=== PATIENT | female | born 1980 | race Caucasian/White ===

== ENCOUNTER 2017-12-28 06:43 | Day surgery (SDC) | payer BC ==
--- NOTE | 2017-12-10 09:52 | HP ---
DATE OF ADMISSION: 12/28/2017 Ambulatory Surgery at [facility] DATE OF PROPOSED SURGERY: 12/28/2017. ADMISSION DIAGNOSES: A 12-week intrauterine , history of incompetent cervix, need for cervical cerclage. HISTORY OF PRESENT ILLNESS: The patient is a 37-year-old, 4, now para 1-0-2-1 white female, who is admitted for a placement of a modified Shirodkar cervical cerclage. She has had previous history of incompetent cervix and is early again. The performance of cervical cerclage, its risks, benefits, alternatives of care are discussed in detail with the patient. She appears to understand and wishes to proceed. Consent is signed. 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 AMADOU is 07/01/2018 as determined by an early ultrasound and this was supported by a second ultrasound done 12/06/2017. The patient's previous obstetric history includes the followin. Miscarriage 04/29/2008 at 9 weeks gestation. 2. Miscarriage 03/31/2009, first trimester. 3. Normal spontaneous vaginal delivery 01/11/2010 at 37 weeks gestational age after 12 hours of labor - 8 pounds and 9 ounces male - cerclage placed at 13 weeks with that - child's name is Zach. 4. The patient's last menstrual period was 09/17/2017, but cycles are very irregular. Menarche age 13. No control at the time of conception. Risk factors for the include the following; history of incompetent cervix, hypothyroidism, history of depression, low progesterone now on supplementation, history of miscarriage x2. PAST MEDICAL HISTORY: 1. Miscarriage x2. 2. Normal spontaneous vaginal delivery. 3. History of depression at age 25, treated with medication. 4. History of abnormal Pap smear treated with loop electrosurgical excision procedure x2. 5. Hypothyroidism. ALLERGIES: Hydrocodone, which causes abdominal pain, nausea, vomiting. CURRENT MEDICATIONS: Include: 1. Progesterone vaginal suppositories 100 mg per day b.i.d. 2. Levothyroxine 100 mcg daily. PAST SURGICAL HISTORY: 1. LEEP x2. 2. Laparoscopic cholecystectomy. 3. Umbilical hernia repair x2. FAMILY HISTORY: Mother is alive and well. Father is alive and well. Two sisters alive and well. One brother alive, but treated for hypertension. Maternal grandmother is alive but has history of skin cancer. Maternal grandfather is secondary to prostate cancer and an [place]. Paternal grandmother secondary to leukemia. Paternal grandfather is secondary to Alzheimer's. She reports no bleeding, clotting, anesthesia, or problems in the family. One maternal aunt has had breast cancer at about age 50. Mother also had 2 miscarriages and 1 sister had 1 miscarriage. SOCIAL HISTORY: The patient is . is Karri Bishop. They live in [place], [place]. She works as a [employer] at [employer]. She does not use any significant amounts of alcohol, drugs, or tobacco. REVIEW OF SYSTEMS: SKIN: Negative. CARDIOVASCULAR: No chest pain or exercise intolerance. RESPIRATORY: No infectious symptoms or shortness of breath. BREASTS: Changes associated with including increased size and sensitivity. GI: Negative. : Some tightness of her pants and increased frequency urination related to . MUSCULOSKELETAL: Negative. NEUROLOGICAL: Negative. PHYSICAL EXAMINATION: GENERAL: The patient is a well-developed, well-nourished, pleasant female, stated age, in no acute distress. VITAL SIGNS: Her blood pressure 112/68, weight 238.8 pounds, heart rate is 170. Her pregravid body mass index is elevated at 39.7. Her height is 5 feet 5 inches. SKIN: Warm without lesions. HEENT, NECK AND BACK: Within normal limits. LUNGS: Clear with good breath sounds in all lung post. CARDIOVASCULAR: Shows regular rate and rhythm. BREASTS: Without masses, dimpling or discharge bilaterally. No axillary or supraclavicular lymphadenopathy is noted. ABDOMEN: Obese, soft, nontender. Uterus is palpated just at the pelvic brim. GENITAL: Perspective on bimanual shows normal external genitalia, BUS, pubic hair pattern. There are normal support, secretions and estrogenization of vagina. At this time, the cervix appears to be closed, thick and is firm. It should be adequate to place a cerclage. EXTREMITIES AND NEUROLOGICAL: Grossly within normal limits. ASSESSMENT: First trimester with history of incompetent cervix. Has need for cervical cerclage placement. Scheduled. Procedure, risks, benefits, alternatives of care including repeated transvaginal ultrasounds, monitoring the cervical length, all discussed with the patient. She appears to understand and wishes to proceed. PLAN: 1. Preop labs will be done today as first labs. 2. Modified Su cervical cerclage to be placed. Orders given. 3. DVT prophylaxis with SCDs. 4. Infection prophylaxis with Ancef 2 g IV preop. MMODAL /[id number]
--- NOTE | 2017-12-27 21:44 | PCM.LDHP ---
L&D History of Present Illness - General Date of Service: 12/28/17 Admit Problem/Dx: Admission Diagnosis/Problem Admission Diagnosis/Problem 12/27/17 21:29 13-3/7 week intrauterine , history of incompetent cervix, scheduled for modified Shirodkar cervical cerclage Source of Information: Patient History Limitations: Reports: No Limitations - History of Present Illness Introduction:: Taniya is a 37-year-old 4 para 10-1 white female who is presently will be at 13-4/7 weeks gestational age upon admission for elective modified Shirodkar cervical cerclage placement. Procedure, risks, benefits, alternatives of care including monitoring cervical length with transvaginal ultrasound on discussed with patient. She appears to understand, has had a cerclage before and wishes to precede again. She has signed a consent. KINDERGARTNER history: 4 para 1021 AMADOU set at 07/01/2018 by early first trimester ultrasound and supported by ultrasound on 12/06/2017 at her first visit. Last menstrual period dating showed an LMP of 09/17/2017. Menarche age 13. Cycles are irregular however. Not using any control to time conception. Patient has had her first visit and a follow-up visit. She has a history of depression age 25 which places her at higher risk for depression in the period. Slurs include a male born [birth year]2010 at 37 weeks gestational age after 12 hours labor. 8 lbs. 9 oz. Patient used an epidural. Did have a cerclage at 13 weeks with that . Baby's name is Zach patient had 2 other miscarriages at 4 and 9 weeks gestational age on 03/31/2009 and 04/29/2008 respectively. She had spontaneous miscarriages with both of these. History of abnormal Pap smea. Hypothyroidism. Low serum progesterone on replacement. Vaginal bleeding early in this . Allergie hydrocodone which causes abdominal pain, nausea, vomiting Medication: 1. Levothyroxine 112 g per day 2. Progesterone vaginal suppository, 100 mg per vagina twice a day through the end of 12 weeks of 3. vitamins daily Past medical history: 1. Incompetent cervix, cerclage with first 2. History of depression age 25 treated medically 3. Hypothyroidism 4. Abnormal Pap smear status post cervical LEEP 5. Miscarriage 2 Surgical history: 1. Laparoscopic cholecystectomy 2. Hernia repair 2 3. LEEP 2 Family history: mother is alive and well. Father is alive and well. 2 sisters alive and well. One brother alive and well with hypertension. Maternal grandmother alive but with skin cancer. Maternal grandfather secondary to prostate cancer and an MD. Paternal grandmother secondary to leukemia. Paternal grandfather secondary to Alzheimer's. No bleeding, clotting, anesthesia, problems noted in the family otherwise. Maternal aunt with breast cancer after the age of 50 Social history: Taniya is . Her is Karri Bishop [address] [place] [address]. She does not use any significant muscle alcohol, drugs or tobacco. 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 Review of systems: In general patient is doing well. Has no complaints of contractions, bleeding at this time. Does not feel available at this point. Skin: Negative Lungs: Negative for infection or shortness of breath Cardiovascular: No chest pain or exercise intolerance Breasts: Negative GI: Negative : As above. Some body habitus changes noted Musculoskeletal: Unremarkable Neurological: Negative Physical exam: On last evaluation in clinic patient's blood pressures 10/10/72. Weight was 242 pounds with a 3 pound weight gain since first visit. Fundal height was consistent with dates. Her pregravid body mass index is 39.7 and height is 5 feet 5 inches. Skin is warm and dry without lesions HEENT, neck and back within normal limits Cardiovascular exam shows regular without murmurs Lungs are clear with good breath sounds in all lung post. Breast exam was done at first visit and found to be within normal limits. Not repeated preoperatively Abdomen is flat, soft, obese, nontender. Uterus is palpated at about 14 weeks size Genital exam on first evaluation showed cervix to be closed, thick, firm Extremities and neurological exam grossly within normal. r - Related Data Allergies/Adverse Reactions: Allergies Allergy/AdvReac Type Severity Reaction Status Date / Time hydrocodone Allergy Other Verified 10/05/16 06:57 Past Medical History HEENT History: Reports: Impaired Vision Cardiovascular History: Reports: None Respiratory History: Reports: None Gastrointestinal History: Reports: None Genitourinary History: Reports: None KINDERGARTNER History: Reports: , Spontaneous Musculoskeletal History: Reports: None Neurological History: Reports: None Psychiatric History: Reports: Depression Endocrine/Metabolic History: Reports: Hypothyroidism Hematologic History: Reports: None Immunologic History: Reports: None Oncologic (Cancer) History: Reports: None Dermatologic History: Reports: None - Past Surgical History Head Surgeries/Procedures: Reports: None HEENT Surgical History: Reports: None Cardiovascular Surgical History: Reports: None Respiratory Surgical History: Reports: None GI Surgical History: Reports: Cholecystectomy, Hernia, Inguinal Female Surgical History: Reports: LEEP Male Surgical History: Reports: None Endocrine Surgical History: Reports: None Neurological Surgical History: Reports: None Musculoskeletal Surgical History: Reports: None Oncologic Surgical History: Reports: None Dermatological Surgical History: Reports: None Social & Family History - Tobacco Use Smoking Status *Q: Former Smoker - Caffeine Use Caffeine Use: Reports: None - Recreational Drug Use Recreational Drug Use: No Drug Use in Last 12 Months: No H&P Review of Systems - Review of Systems: Review Of Systems: See Below L&D Exam - Exam Exam: See Below Problem List Initiated/Reviewed/Updated: Yes Orders Last 24hrs: Active Orders 24 hr Category Date Time Status Peripheral IV Care [RC] . DIRECTED Care 12/28/17 00:01 Active Verify Patient Consent Obtain [RC] ASDIRECTED Care 12/28/17 00:01 Active Lactated Ringers [Ringers, Lactated] 1,000 ml Med 12/28/17 00:01 Active IV ASDIRECTED Lidocaine 1%/Sod Bicarbonate [Buffered Lidocaine 1% in Med 12/28/17 00:01 Active NS 8.4%] 0.25 ml IDERM ONETIME PRN Sodium Chloride 0.9% [Saline Flush] Med 12/28/17 00:01 Active 10 ml FLUSH ASDIRECTED PRN Medication Administration Instruction [OM.PC] Routine Oth 12/28/17 00:01 Ordered Peripheral IV Insertion Adult [OM.PC] Routine Oth 12/28/17 00:01 Ordered Medication Orders Lactated Ringer's (Ringers, Lactated) 1,000 mls @ 125 mls/hr IV ASDIRECTED LARA Lidocaine/Sodium Bicarbonate (Buffered Lidocaine 1% In Ns 8.4%) 0.25 ml IDERM ONETIME PRN PRN Reason: Prior to IV Start Sodium Chloride (Saline Flush) 10 ml FLUSH ASDIRECTED PRN PRN Reason: Keep Vein Open Assessment/Plan Comment:: Assessment: 1.-4 week intrauterine , history of incompetent cervix, scheduled for a modified Shirodkar cervical cerclage placed on 12/28/2017. 2. Risk factors for include history of LEEP 2, history of previous cerclage, obesity, hypothyroidism on replacement. 3. Laboratory testing within normal limits preoperative evaluation Plan: 1. Modified Shirodkar cervical cerclage to be placed under general anesthesia. Procedure, risks, benefits, alternatives Including monitoring cervical length with transvaginal ultrasound and intervening only if changes noted are all discussed with patient. She appears to understand, and wishes to proceed, has had good luck with her last cerclage and has signed a consent for the procedure. 2. Ancef 2 g IV preop for infection prophylaxis DVT prophylaxis SCDs 3. DVT prophylaxis with SCDs 4. Routine laboratory testing done at time first visit It is not repeated at this time.
[~2017-12-28 06:43] MED LIST: Lactated Ringers 1,000 ML IV SCH; Lidocaine 1%/Sod Bicarbonate in NS 8.4% 1 ML Syringe IDERM PRN; Sodium Chloride 0.9% 10 ML Syringe FLUSH PRN
[2017-12-28] MEDS ORDERED: Propofol 200 MG/20 ML SDV ONE ×2 (07:21→08:12)
[2017-12-28] MEDS ORDERED: fentaNYL 250 MCG/5 ML SDV ONE (07:22)
[2017-12-28] MEDS ORDERED: ceFAZolin 1 GM Vial ONE (07:22)
[2017-12-28] MEDS ORDERED: Ondansetron 4 MG/2 ML SDV ONE (07:22)
[2017-12-28] MEDS ORDERED: Lactated Ringers 1,000 ML ONE (07:22)
[2017-12-28] MEDS ORDERED: Lidocaine 1% 4 ML ONE (07:23)
[2017-12-28] MEDS ORDERED: Ketamine 500 mg/10 ML MDV ONE (07:51)
[2017-12-28] MEDS ORDERED: Metoclopramide 10 MG/2 ML SDV ONE (07:52)
[2017-12-28] MEDS ORDERED: Acetaminophen 325 MG Tab PO PRN (08:24)
--- NOTE | 2017-12-28 08:27 | PCM.PREANE ---
Preanesthetic Assessment - Anesthesia/Transfusion/Family Hx Anesthesia History: Prior Anesthesia Without Reaction Family History of Anesthesia Reaction: No - Review of Systems General: No Symptoms Pulmonary: No Symptoms Cardiovascular: No Symptoms Gastrointestinal: No Symptoms (Denies GERD) Neurological: No Symptoms Other: Reports: Thyroid Problems (Hypothyroidism) - Physical Assessment NPO Status Date: 12/27/17 NPO Status Time: 22:30 O2 Sat by Pulse Oximetry: 97 Respiratory Rate: 16 Vital Signs: Last Vital Signs Temp 36.6 C 12/28/17 07:00 Pulse 87 12/28/17 07:00 Resp 16 12/28/17 07:00 BP 121/76 12/28/17 07:00 Pulse Ox 97 12/28/17 07:00 Height: 1.65 m Weight: 107.048 kg ASA Class: 2 Mental Status: Alert & Oriented x3 Airway Class: Mallampati = 1 Dentition: Reports: Normal Dentition (Lots of fillings) Thyro-Mental Finger Breadths: 3 Mouth Opening Finger Breadths: 3 ROM/Head Extension: Full Lungs: Clear to Auscultation, Normal Respiratory Effort Cardiovascular: Regular Rate, Regular Rhythm - Allergies Allergies/Adverse Reactions: Allergies Allergy/AdvReac Type Severity Reaction Status Date / Time hydrocodone Allergy Other Verified 10/05/16 06:57 - Acknowledgements Anesthesia Type Planned: MAC Pt an Appropriate Candidate for the Planned Anesthesia: Yes Alternatives and Risks of Anesthesia Discussed w Pt/Guardian: Yes Pt/Guardian Understands and Agrees with Anesthesia Plan: Yes Additional Comments: First Trimester of . heart tones will be checked prior to discharge. 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 Musculoskeletal History: Reports: None Neurological History: Reports: None Psychiatric History: Reports: Depression Endocrine/Metabolic History: Reports: Hypothyroidism Hematologic History: Reports: None Immunologic History: Reports: None Oncologic (Cancer) History: Reports: None Dermatologic History: Reports: None - Past Surgical History Head Surgeries/Procedures: Reports: None HEENT Surgical History: Reports: None Cardiovascular Surgical History: Reports: None Respiratory Surgical History: Reports: None GI Surgical History: Reports: Cholecystectomy, Hernia, Inguinal Female Surgical History: Reports: LEEP Male Surgical History: Reports: None Endocrine Surgical History: Reports: None Neurological Surgical History: Reports: None Musculoskeletal Surgical History: Reports: None Oncologic Surgical History: Reports: None Dermatological Surgical History: Reports: None - SUBSTANCE USE Smoking Status *Q: Former Smoker Recreational Drug Use History: No - CURRENT (IN HOUSE) MEDS Current Meds: Current Medications Acetaminophen (Tylenol) 650 mg PO Q4H PRN PRN Reason: Pain Lactated Ringer's (Ringers, Lactated) 1,000 mls @ 125 mls/hr IV ASDIRECTED LARA Last Admin: 12/28/17 07:25 Dose: 125 mls/hr Lidocaine/Sodium Bicarbonate (Buffered Lidocaine 1% In Ns 8.4%) 0.25 ml IDERM ONETIME PRN PRN Reason: Prior to IV Start Last Admin: 12/28/17 07:25 Dose: 0.25 ml Sodium Chloride (Saline Flush) 10 ml FLUSH ASDIRECTED PRN PRN Reason: Keep Vein Open Discontinued Medications Cefazolin Sodium (Ancef) Confirm Administered Dose 2 gm .ROUTE .STK-MED ONE Stop: 12/28/17 07:23 Fentanyl (Sublimaze) Confirm Administered Dose 250 mcg .ROUTE .STK-MED ONE Stop: 12/28/17 07:23 Lactated Ringer's (Ringers, Lactated) Confirm Administered Dose 1,000 mls @ as directed .ROUTE .STK-MED ONE Stop: 12/28/17 07:23 Lidocaine HCl (Xylocaine-Mpf 1%) Confirm Administered Dose 4 mls @ as directed .ROUTE .STK-MED ONE Stop: 12/28/17 07:24 Ketamine HCl (Ketalar) Confirm Administered Dose 500 mg .ROUTE .STK-MED ONE Stop: 12/28/17 07:52 Metoclopramide HCl (Reglan) Confirm Administered Dose 10 mg .ROUTE .STK-MED ONE Stop: 12/28/17 07:53 Ondansetron HCl (Zofran) Confirm Administered Dose 4 mg .ROUTE .STK-MED ONE Stop: 12/28/17 07:23 Propofol (Diprivan 20 Ml) Confirm Administered Dose 1,200 mg .ROUTE .STK-MED ONE Stop: 12/28/17 07:22 Propofol (Diprivan 20 Ml) Confirm Administered Dose 200 mg .ROUTE .STK-MED ONE Stop: 12/28/17 08:13
--- NOTE | 2017-12-28 08:31 | PCM.OPNOTE ---
- General Post-Op/Procedure Note Date of Surgery/Procedure: 12/28/17 Operative Procedure(s): Modified Shirodkar cervical cerclagevaginal Findings: Patient had significant ectropion and full circumference of the os. Some decrease in length of the ricks was noted. Cervix however was closed. Pre Op Diagnosis: 13 week intrauterine , history of cervical incompetence Post-Op Diagnosis: Same Anesthesia Technique: MAC Primary Surgeon: Rey Roman Secondary Surgeon: Matthew Sood Anesthesia Provider: Elizabeth Shay Catering Server: Xu Walker Reason Catering Server Was Necessary: Retraction, assistance, patient safety, quality of care Role of Catering Server: Assistance, retraction Fluid Replacement, Intraop: 1,000 EBL in mLs: 15 Complications: None Condition: Good Free Text/Narrative:: Surgery duration: 13 minutes The patient was taken to the operating room and placed in a supine position on the operating table. She received 2 g of Ancef preoperatively for infection prophylaxis and had sequential compression stockings in place for DVT prophylaxis. She was administered MAC anesthesia and after adequate anesthesia was placed in a dorsal lithotomy position. Patient was prepped on the exterior by staff and was draped in usual fashion. A speculum was placed and a very gentle internal Betadine prep was done by myself. Cervix was visualized, evaluated and found to be dilated as previously documented. The anterior lip of the cervix and the posterior lip of the cervix were grasped with ring forceps and gently retracted to length and cervix as much as possible. Using Tevdek tape a circumferential stitch was placed with around the cervix at the highest possible position. It was placed in a modified Shirodkar fashion entering the subepithelial layer anteriorly at 12 o'clock position and placed in full circumference to anchor the suture in the appropriate position. When this was finished it was tied at the 12 o'clock position. An 2-0 silk suture was then used to secure the ends of the Tevdek tape to keep them from unraveling. At this time old blood was removed from the vagina. The cervix was noted to be entirely closed with the suture placement. Stitch was in place and approximately 1-1/2 cm from the end of the cervix. No problems were encountered. 2-0 Vicryl was used to close the posterior epithelium incision because of bleeding. Placed in short running fashion. The speculum was removed from the vagina, patient was returned to supine position and anesthesia was reversed. She left the operating room in good condition. heart rate was assessed after surgery and was found to be normal.
[2017-12-28 08:32] VITALS: BP 116/60
--- NOTE | 2017-12-28 08:35 | PCM48HPAN ---
Post Anesthesia Note - EVALUATION WITHIN 48HRS OF ANESTHETIC Vital Signs in Normal Range: Yes Patient Participated in Evaluation: Yes Respiratory Function Stable: Yes Airway Patent: Yes Cardiovascular Function Stable: Yes Hydration Status Stable: Yes Pain Control Satisfactory: Yes Nausea and Vomiting Control Satisfactory: Yes Mental Status Recovered: Yes
== END 2017-12-28 09:16 | disposition home or self-care (01) ==
LOC: JD.SDS 06:43
PROVIDERS: ATTEND Obstetrics & Gynecology
DX: O34.31 Maternal care for cervical incompetence, first trimester (principal); O99.281 Endocrine, nutritional and metabolic diseases complicating pregnancy, first trimester; E03.9 Hypothyroidism, unspecified; Z3A.13 13 weeks gestation of pregnancy; Z87.891 Personal history of nicotine dependence; Z88.5 Allergy status to narcotic agent; Z79.899 Other long term (current) drug therapy; Z90.49 Acquired absence of other specified parts of digestive tract
CPT/HCPCS: 59320; J0690; J2405; J2765; J3010; J7120; 00948; J2001; J2704

== ENCOUNTER 2018-05-31 23:35 | Inpatient (IN) | payer BC ==
[~2018-05-31 23:35] MED LIST changes: +Bupivacaine 0.25% 10 ML SDV ONE; -Lactated Ringers 1,000 ML IV SCH; -Lidocaine 1%/Sod Bicarbonate in NS 8.4% 1 ML Syringe IDERM PRN; -Sodium Chloride 0.9% 10 ML Syringe FLUSH PRN
[2018-06-01] MEDS ORDERED: Nalbuphine 20 MG/ML 1 ML Syringe IVPUSH PRN (00:12)
[2018-06-01] MEDS ORDERED: Ondansetron 4 MG/2 ML SDV IVPUSH PRN ×2 (00:12→07:46)
[2018-06-01] MEDS ORDERED: Sodium Chloride 0.9% 10 ML Syringe FLUSH PRN (00:12)
[2018-06-01] MEDS ORDERED: Oxytocin/Lactated Ringers 10 UNIT/1,000 ML BAG IV SCH ×2 (00:15→03:30)
[2018-06-01] MEDS: Lactated Ringers 1,000 ML IV SCH ×3 (00:22→08:37)
--- NOTE | 2018-06-01 00:27 | PCM.LDHP ---
L&D History of Present Illness - General Date of Service: 06/01/18 Admit Problem/Dx: Patient Status Order with Admit Dx/Problem 06/01/18 00:13 Patient Status [ADT] Routine Admission Diagnosis/Problem Admission Diagnosis/Problem premature rupture of membranes Source of Information: Patient History Limitations: Reports: No Limitations - History of Present Illness Introduction:: 38 y/o at 35 4/7 wks presents with PPROM. Has a history of incompetent cervix and had a cerclage placed this . Earlier this week had a fair amount of cramping, but was assessed in clinic and found to be stable. Tonight was up in the bathroom when she had a large gush of blood tinged fluid. Has been having contractions since that time. No other issues. - Related Data Allergies/Adverse Reactions: Allergies Allergy/AdvReac Type Severity Reaction Status Date / Time hydrocodone Allergy Other Verified 10/05/16 06:57 Home Medications: Home Meds Calcium Carbonate/Vitamin D3 [Calcium 500 + Vit D Caplet] 1 tab PO DAILY [History] Docusate Sodium [Colace] 1 cap PO DAILY 12/28/17 [History] L.acidoph,Paracasei, B.lactis [Probiotic] 1 cap PO DAILY 12/28/17 [History] Levothyroxine [Synthroid] 1 tab PO DAILY 12/28/17 [History] Pnv No.95/Ferrous Fum/Folic AC [ Multivitamin Tablet] 1 tab PO DAILY [History] Past Medical History HEENT History: Reports: Impaired Vision 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: , 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 : 4 Para: 1 LMP (Approximate): Psychiatric History: Reports: Depression Endocrine/Metabolic History: Reports: Diabetes, Gestational (On Glyburide, 2.5 mg), Hypothyroidism - Past Surgical History GI Surgical History: Reports: Cholecystectomy, Hernia, Inguinal Female Surgical History: Reports: LEEP (x2), Other (See Below) (Cerclage x2) Social & Family History - Tobacco Use Smoking Status *Q: Never Smoker - Caffeine Use Caffeine Use: Reports: None - Alcohol Use Alcohol Use History: No - Recreational Drug Use Recreational Drug Use: No H&P Review of Systems - Review of Systems: Review Of Systems: See Below General: Reports: No Symptoms Pulmonary: Reports: No Symptoms Cardiovascular: Reports: No Symptoms Gastrointestinal: Reports: No Symptoms Genitourinary: Reports: No Symptoms Musculoskeletal: Reports: No Symptoms Neurological: Reports: No Symptoms L&D Exam - Exam Exam: See Below - OB Specific Contraction Intensity: Mild to Moderate Movement: Active Heart Tones: Present Heart Tones per Min: 140 Heart Rate (FHR) Variability: Moderate (6-25 bmp) Presentation: Vertex - Dan Score Dan Score Cervix Position: Midposition Dan Score Consistency: Soft Dan Score Effacement: 51-70% Dan Score Dilation: 3-4 cm Dan Score Infant's Station: -2 Dan Score Total: 8 - Exam General: Alert, Oriented, Cooperative Lungs: Clear to Auscultation, Normal Respiratory Effort Cardiovascular: Regular Rate, Regular Rhythm GI/Abdominal Exam: Soft, Non-Tender Genitourinary: Normal external exam, Normal speculum exam (Cerclage suture is seen, elevated and cut) Extremities: Normal Inspection Skin: Warm, Dry, Intact - Problem List (1) 35 weeks gestation of SNOMED Code(s): 40157831 ICD Code: Z3A.35 - 35 WEEKS GESTATION OF Status: Acute Current Visit: Yes (2) Cervical cerclage suture present SNOMED Code(s): 19433306 ICD Code: O34.30 - MATERNAL CARE FOR CERVICAL INCOMPETENCE, UNSP TRIMESTER Status: Acute Current Visit: Yes Qualifiers: Trimester: third trimester Qualified Code(s): O34.33 - Maternal care for cervical incompetence, third trimester (3) premature rupture of membranes (PPROM) with unknown onset of labor SNOMED Code(s): 04299523288782170 ICD Code: O42.919 - PRETRM ABHINAV ROM, UNSP TIME BETW RUPT AND ONST LABR, UNSP TRI Status: Acute Current Visit: Yes (4) Gestational diabetes mellitus (GDM) controlled on oral hypoglycemic drug SNOMED Code(s): 86131785 ICD Code: O24.415 - GESTATNL DIABETES IN PREG, CTRL BY ORAL HYPOGLYCEMIC DRUGS Status: Acute Current Visit: Yes Qualifiers: Trimester: third trimester Qualified Code(s): O24.415 - Gestational diabetes mellitus in , controlled by oral hypoglycemic drugs Problem List Initiated/Reviewed/Updated: Yes Orders Last 24hrs: Active Orders 24 hr Category Date Time Status Patient Status [ADT] Routine ADT 06/01/18 00:13 Active Activity as Tolerated [RC] PFP Care 06/01/18 00:13 Active Blood Glucose Check, Bedside [RC] Q2H Care 06/01/18 00:12 Active Communication Order [RC] ASDIRECTED Care 06/01/18 00:13 Active Heart Tones [RC] ASDIRECTED Care 06/01/18 00:13 Active Non Stress Test [RC] PER UNIT ROUTINE Care 06/01/18 00:13 Active Notify Provider [RC] PFP Care 06/01/18 00:13 Active Notify Provider [RC] PRN Care 06/01/18 00:13 Active Peripheral IV Care [RC] . DIRECTED Care 06/01/18 00:13 Active Vital Signs [RC] PER UNIT ROUTINE Care 06/01/18 00:13 Active Regular Diet [DIET] Diet 06/01/18 Dinner Active ALANINE AMINOTRANSFERASE,ALT [CHEM] Routine Lab 06/01/18 00:12 Ordered ASPARTATE AMNIOTRANSFERASE,AST [CHEM] Routine Lab 06/01/18 00:12 Ordered CBC W/O DIFF,HEMOGRAM [HEME] Stat Lab 06/01/18 00:12 Ordered CREATININE W/GFR [CHEM] Routine Lab 06/01/18 00:12 Ordered RAPID PLASMA REAGIN,RPR [CHEM] Routine Lab 06/01/18 00:13 Ordered TYPE AND SCREEN [BBK] Stat Lab 06/01/18 00:12 Ordered Lactated Ringers [Ringers, Lactated] 1,000 ml Med 06/01/18 00:15 Ordered IV ASDIRECTED Nalbuphine [Nubain] Med 06/01/18 00:12 Ordered 10 mg IVPUSH Q2H PRN Ondansetron [Zofran] Med 06/01/18 00:12 Ordered 4 mg IVPUSH Q4H PRN Oxytocin/Lactated Ringers [Pitocin in LR 10 Units/1,000 Med 06/01/18 00:15 Ordered ML] 10 unit in 1,000 ml IV .CONTINUOUS Sodium Chloride 0.9% [Saline Flush] Med 06/01/18 00:12 Ordered 10 ml FLUSH ASDIRECTED PRN Electronic Heart Tones Ext w TOCO [WOMSER] Oth 06/01/18 00:13 Ordered Routine Electronic Heart Tones Internal [WOMSER] Per Unit Oth 06/01/18 00:13 Ordered Routine Peripheral IV Insertion Adult [OM.PC] Routine Oth 06/01/18 00:13 Ordered Resuscitation Status Routine Resus Stat 06/01/18 00:12 Ordered Medication Orders Lactated Ringer's (Ringers, Lactated) 1,000 mls @ 100 mls/hr IV ASDIRECTED LARA Oxytocin/Lactated Ringer's (Pitocin In Lr 10 Units/1,000 Ml) 10 unit in 1,000 mls @ 500 mls/hr IV .CONTINUOUS LARA Nalbuphine HCl (Nubain) 10 mg IVPUSH Q2H PRN PRN Reason: pain Ondansetron HCl (Zofran) 4 mg IVPUSH Q4H PRN PRN Reason: Nausea/Vomiting Sodium Chloride (Saline Flush) 10 ml FLUSH ASDIRECTED PRN PRN Reason: Keep Vein Open Assessment/Plan Comment:: 38 y/o at 35 4/7 wks presents with PPROM * Cerclage suture excised * CBC, RPR, T&S. Also will order AST, ALT, Creatinine for mild range BP on admission * GBS negative, no need for antibiotics * Blood sugars q2 hours currently, q1 hr in active labor * Pain management per patient preference * Multiparous patient already 3 cm dilated and with blood tinged discharge. Prefer to not transfer to [place] at this time due to concerns that patient could become more active. Will plan for delivery in [place]
--- NOTE | 2018-06-01 07:36 | PCM.PNLD ---
Labor Progress Note - VS & Meds Vital Signs: Last Vital Signs Temp 36.7 C 06/01/18 00:13 Pulse 84 06/01/18 00:13 Resp 14 06/01/18 00:29 BP 154/77 H 06/01/18 00:29 Pulse Ox Active Medications: Current Medications Lactated Ringer's (Ringers, Lactated) 1,000 mls @ 100 mls/hr IV ASDIRECTED LARA Last Admin: 06/01/18 04:13 Dose: 100 mls/hr Oxytocin/Lactated Ringer's (Pitocin In Lr 10 Units/1,000 Ml) 10 unit in 1,000 mls @ 500 mls/hr IV .CONTINUOUS LARA Oxytocin/Lactated Ringer's (Pitocin In Lr 10 Units/1,000 Ml) 10 unit in 1,000 mls @ 12 mls/hr IV TITRATE LARA; Protocol Last Titration: 06/01/18 07:05 Dose: 6 munits/min, 36 mls/hr Nalbuphine HCl (Nubain) 10 mg IVPUSH Q2H PRN PRN Reason: pain Ondansetron HCl (Zofran) 4 mg IVPUSH Q4H PRN PRN Reason: Nausea/Vomiting Sodium Chloride (Saline Flush) 10 ml FLUSH ASDIRECTED PRN PRN Reason: Keep Vein Open - Uterine Contractions Uterine Monitoring Mode: External [place] Contraction Intensity: Moderate - Monitoring Monitor Mode: External Ultrasound Heart Rate (FHR) Baseline: 135 Heart Rate (FHR) Variability: Moderate (6-25 bmp) Accelerations: Present, 15x15 Decelerations: Prolonged (>2x10 min) (At 0445, since then has been appropriate ) Strip Review: Category II - Vaginal Exam Dilation (cm): 5 Effacement (Percent): 80 Station: -1 Cervical Position: Midposition - Labor Progress (Free Text) Labor Progress: Doing well. On 6 of pitocin. Continue present management
[2018-06-01] MEDS ORDERED: fentaNYL 100 MCG/2 ML SDV EPIDUR PRN (07:46)
[2018-06-01] MEDS ORDERED: ePHEDrine 50 MG/ML SDV IVPUSH PRN (07:46)
--- NOTE | 2018-06-01 07:48 | PCM.PREANE ---
Preanesthetic Assessment - Anesthesia/Transfusion/Family Hx Anesthesia History: Prior Anesthesia Without Reaction Family History of Anesthesia Reaction: No Transfusion History: No Prior Transfusion(s) Intubation History: Unknown - Review of Systems General: No Symptoms Pulmonary: No Symptoms Cardiovascular: No Symptoms Gastrointestinal: No Symptoms (GERD), Constipation Neurological: No Symptoms (Vertigo) Other: Reports: Easy Bruising, Diabetes (gestational on glyburide), Thyroid Problems (hypothyroid) - Physical Assessment NPO Status Date: 06/01/18 NPO Status Time: 01:00 Pulse: 87 O2 Sat by Pulse Oximetry: 99 Respiratory Rate: 14 Blood Pressure: 154/77 Temperature: 36.7 C Vital Signs: Last Vital Signs Temp 36.7 C 06/01/18 00:13 Pulse 84 06/01/18 00:13 Resp 14 06/01/18 00:29 BP 154/77 H 06/01/18 00:29 Pulse Ox Height: 1.65 m Weight: 114.759 kg ASA Class: 2 Mental Status: Alert & Oriented x3 Airway Class: Mallampati = 2 Dentition: Reports: Normal Dentition, [place](s), [place] Thyro-Mental Finger Breadths: 3 Mouth Opening Finger Breadths: 3 ROM/Head Extension: Full Lungs: Clear to Auscultation, Normal Respiratory Effort Cardiovascular: Regular Rate, Regular Rhythm, No Murmurs - Lab Values: Laboratory Last Values WBC 9.47 K/mm3 (3.98-10.04) 06/01/18 00:25 RBC 4.35 M/mm3 (3.98-5.22) 06/01/18 00:25 Hgb 13.0 gm/L (11.2-15.7) 06/01/18 00:25 Hct 38.9 % (34.1-44.9) 06/01/18 00:25 MCV 89.4 fl (79.4-94.8) 06/01/18 00:25 MCH 29.9 pg (25.6-32.2) 06/01/18 00:25 MCHC 33.4 g/dl (32.2-35.5) 06/01/18 00:25 RDW Std Deviation 46.0 fL (36.4-46.3) 06/01/18 00:25 Plt Count 234 K/mm3 (182-369) 06/01/18 00:25 MPV 11.3 fl (9.4-12.3) 06/01/18 00:25 Creatinine 0.9 mg/dL (0.55-1.02) 06/01/18 00:25 Est Cr Clr Drug Dosing TNP 06/01/18 00:25 Estimated GFR (MDRD) > 60 mL/min (>60) 06/01/18 00:25 POC Glucose 76 mg/dL (70-105) 06/01/18 04:04 AST 18 U/L (15-37) 06/01/18 00:25 ALT 24 U/L (14-59) 06/01/18 00:25 Blood Type A POSITIVE 06/01/18 00:25 Gel Antibody Screen Negative 06/01/18 00:25 Above labs reviewed and noted and within acceptable ranges to proceed with epidural. 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 Other OB/BYN History: cervical cerclage, Hx of abnormal Pap, LEEP procedure x2 Psychiatric History: Reports: Depression Endocrine/Metabolic History: Reports: Diabetes, Gestational (On Glyburide, 2.5 mg), Hypothyroidism Hematologic History: Reports: Anemia - Infectious Disease History Infectious Disease History: Reports: Chicken Pox - Past Surgical History GI Surgical History: Reports: Cholecystectomy, Hernia, Inguinal Female Surgical History: Reports: LEEP (x2), Other (See Below) (Cerclage x2) - SUBSTANCE USE Smoking Status *Q: Never Smoker Tobacco Use Within Last Twelve Months: No Recreational Drug Use History: No - HOME MEDS Home Medications: Home Meds Calcium Carbonate/Vitamin D3 [Calcium 500 + Vit D Caplet] 1 tab PO DAILY [History] Docusate Sodium [Colace] 1 cap PO DAILY 12/28/17 [History] L.acidoph,Paracasei, B.lactis [Probiotic] 1 cap PO DAILY 12/28/17 [History] Levothyroxine [Synthroid] 112 mcg PO DAILY 12/28/17 [History] Pnv No.95/Ferrous Fum/Folic AC [ Multivitamin Tablet] 1 tab PO DAILY [History] Iron 18 mg PO 06/01/18 [History] glyBURIDE [Glyburide] 2.5 mg PO 06/01/18 [History] - CURRENT (IN HOUSE) MEDS Current Meds: Current Medications Lactated Ringer's (Ringers, Lactated) 1,000 mls @ 100 mls/hr IV ASDIRECTED LARA Last Admin: 06/01/18 04:13 Dose: 100 mls/hr Oxytocin/Lactated Ringer's (Pitocin In Lr 10 Units/1,000 Ml) 10 unit in 1,000 mls @ 500 mls/hr IV .CONTINUOUS LARA Oxytocin/Lactated Ringer's (Pitocin In Lr 10 Units/1,000 Ml) 10 unit in 1,000 mls @ 12 mls/hr IV TITRATE LARA; Protocol Last Titration: 06/01/18 07:05 Dose: 6 munits/min, 36 mls/hr Nalbuphine HCl (Nubain) 10 mg IVPUSH Q2H PRN PRN Reason: pain Ondansetron HCl (Zofran) 4 mg IVPUSH Q4H PRN PRN Reason: Nausea/Vomiting Sodium Chloride (Saline Flush) 10 ml FLUSH ASDIRECTED PRN PRN Reason: Keep Vein Open
[2018-06-01] MEDS ORDERED: Phenylephrine 1 MG in Sodium Chloride 0.9% 10 ML IV SCH (08:00)
[2018-06-01] MEDS ORDERED: Bupivacaine/fentaNYL/NS 100 ML Bag EPIDUR SCH (08:00)
--- NOTE | 2018-06-01 10:15 | PCM.DEL ---
L & D Note - General Info Date of Service: 06/01/18 - Delivery Note Labor: Augmented by Oxytocin Delivery Outcome: Livebirth Delivery Method: Spontaneous Vaginal Delivery-Single Infant Delivery Mode: Spontaneous Presentation: Right Occiput Anterior (ENRIQUE) Nuchal Cord: None Anesthesia Type: Epidural Amniotic Fluid Description: Clear Episiotomy Type: None Laceration: 1st Degree, Periurethral Suture type: Vicryl Suture size: 3-0 Placenta: Intact, Spontaneous Cord: 3 Vessels Estimated Blood Loss: 200 Resuscitation Needed: Yes [place]: Bulb Syringe, Stimulated, Warmed, [place] Used, Warmer Used Score 1 min: 9 Score 5 min: 9 Delivery Comments (Free Text/Narrative):: Patient found to be complete and began pushing. With maternal pushing effort head delivered from an ENRIQUE presentation. No nuchal cord present. With gentle downward traction the shoulders and body delivered. Cord clamped and cut. Baby taken to warmer for assessment. Cord blood collected. Placenta allowed time to separate and expelled intact. Inspection of the perineum showed a 1st degree laceration repaired with a 3-0 vicryl in the typical fashion. - General Info Date of Service: 06/01/18 - Patient Data Vitals - Most Recent: Last Vital Signs Temp 36.7 C 06/01/18 08:05 Pulse 87 06/01/18 08:05 Resp 14 06/01/18 08:05 BP 154/77 H 06/01/18 08:05 Pulse Ox 99 06/01/18 08:05 Weight - Most Recent: 114.759 kg I&O - Last 24 Hours: Intake & Output 05/31/18 06/01/18 06/01/18 22:59 06:59 14:59 Intake Total 1000 Balance 1000 Lab Results Last 24 Hours: Laboratory Results - last 24 hr 06/01/18 06/01/18 06/01/18 Range/Units 00:25 00:25 00:25 WBC 9.47 (3.98-10.04) K/mm3 RBC 4.35 (3.98-5.22) M/mm3 Hgb 13.0 (11.2-15.7) gm/L Hct 38.9 (34.1-44.9) % MCV 89.4 (79.4-94.8) fl MCH 29.9 (25.6-32.2) pg MCHC 33.4 (32.2-35.5) g/dl RDW Std Deviation 46.0 (36.4-46.3) fL Plt Count 234 (182-369) K/mm3 MPV 11.3 (9.4-12.3) fl Creatinine 0.9 (0.55-1.02) mg/dL Est Cr Clr Drug Dosing TNP Estimated GFR (MDRD) > 60 (>60) mL/min POC Glucose (70-105) mg/dL AST 18 (15-37) U/L ALT 24 (14-59) U/L RPR (NONREACTIVE) Blood Type A POSITIVE Gel Antibody Screen Negative 06/01/18 06/01/18 06/01/18 Range/Units 00:25 00:37 02:04 WBC (3.98-10.04) K/mm3 RBC (3.98-5.22) M/mm3 Hgb (11.2-15.7) gm/L Hct (34.1-44.9) % MCV (79.4-94.8) fl MCH (25.6-32.2) pg MCHC (32.2-35.5) g/dl RDW Std Deviation (36.4-46.3) fL Plt Count (182-369) K/mm3 MPV (9.4-12.3) fl Creatinine (0.55-1.02) mg/dL Est Cr Clr Drug Dosing Estimated GFR (MDRD) (>60) mL/min POC Glucose 79 84 (70-105) mg/dL AST (15-37) U/L ALT (14-59) U/L RPR Non-reactive (NONREACTIVE) Blood Type Gel Antibody Screen 06/01/18 06/01/18 06/01/18 Range/Units 04:04 06:02 08:32 WBC (3.98-10.04) K/mm3 RBC (3.98-5.22) M/mm3 Hgb (11.2-15.7) gm/L Hct (34.1-44.9) % MCV (79.4-94.8) fl MCH (25.6-32.2) pg MCHC (32.2-35.5) g/dl RDW Std Deviation (36.4-46.3) fL Plt Count (182-369) K/mm3 MPV (9.4-12.3) fl Creatinine (0.55-1.02) mg/dL Est Cr Clr Drug Dosing Estimated GFR (MDRD) (>60) mL/min POC Glucose 76 90 102 (70-105) mg/dL AST (15-37) U/L ALT (14-59) U/L RPR (NONREACTIVE) Blood Type Gel Antibody Screen Med Orders - Current: Current Medications Ephedrine Sulfate (Ephedrine Sulfate) 5 mg IVPUSH ASDIRECTED PRN PRN Reason: Hypotension Fentanyl (Sublimaze) 100 mcg EPIDUR Q3H PRN PRN Reason: Pain Last Admin: 06/01/18 07:59 Dose: 100 mcg Fentanyl/Bupivacaine HCl (Fentanyl/Bupivacaine/Ns 2 Mcg-0.125% 100 Ml) 100 ml EPIDUR ASDIRECTED LARA Last Admin: 06/01/18 07:59 Dose: 100 ml Lactated Ringer's (Ringers, Lactated) 1,000 mls @ 100 mls/hr IV ASDIRECTED LARA Last Admin: 06/01/18 08:37 Dose: 100 mls/hr Oxytocin/Lactated Ringer's (Pitocin In Lr 10 Units/1,000 Ml) 10 unit in 1,000 mls @ 500 mls/hr IV .CONTINUOUS LARA Oxytocin/Lactated Ringer's (Pitocin In Lr 10 Units/1,000 Ml) 10 unit in 1,000 mls @ 12 mls/hr IV TITRATE LARA; Protocol Last Titration: 06/01/18 07:05 Dose: 6 munits/min, 36 mls/hr Phenylephrine HCl 1 mg/ Sodium (Chloride) 10.1 mls @ 1 mls/sec IV TITRATE LARA; Protocol Nalbuphine HCl (Nubain) 10 mg IVPUSH Q2H PRN PRN Reason: pain Ondansetron HCl (Zofran) 4 mg IVPUSH Q4H PRN PRN Reason: Nausea/Vomiting Ondansetron HCl (Zofran) 4 mg IVPUSH ONETIME PRN PRN Reason: Nausea/Vomiting Sodium Chloride (Saline Flush) 10 ml FLUSH ASDIRECTED PRN PRN Reason: Keep Vein Open - Problem List & Annotations (1) 35 weeks gestation of SNOMED Code(s): 08873333 Code(s): Z3A.35 - 35 WEEKS GESTATION OF Status: Acute Current Visit: Yes (2) Cervical cerclage suture present SNOMED Code(s): 18483256 Code(s): O34.30 - MATERNAL CARE FOR CERVICAL INCOMPETENCE, UNSP TRIMESTER Status: Acute Current Visit: Yes Qualifiers: Trimester: third trimester Qualified Code(s): O34.33 - Maternal care for cervical incompetence, third trimester (3) premature rupture of membranes (PPROM) with unknown onset of labor SNOMED Code(s): 26000296546420063 Code(s): O42.919 - PRETRM ABHINAV ROM, UNSP TIME BETW RUPT AND ONST LABR, UNSP TRI Status: Acute Current Visit: Yes (4) Gestational diabetes mellitus (GDM) controlled on oral hypoglycemic drug SNOMED Code(s): 04344481 Code(s): O24.415 - GESTATNL DIABETES IN PREG, CTRL BY ORAL HYPOGLYCEMIC DRUGS Status: Acute Current Visit: Yes Qualifiers: Trimester: third trimester Qualified Code(s): O24.415 - Gestational diabetes mellitus in , controlled by oral hypoglycemic drugs (5) Vaginal delivery SNOMED Code(s): 949559886 Code(s): O80 - ENCOUNTER FOR FULL-TERM UNCOMPLICATED DELIVERY Status: Acute Current Visit: Yes - Problem List Review Problem List Initiated/Reviewed/Updated: Yes - My Orders Last 24 Hours: My Active Orders 06/01/18 00:12 Blood Glucose Check, Bedside [RC] Q2HR Nalbuphine [Nubain] 10 mg IVPUSH Q2H PRN Ondansetron [Zofran] 4 mg IVPUSH Q4H PRN Sodium Chloride 0.9% [Saline Flush] 10 ml FLUSH ASDIRECTED PRN Resuscitation Status Routine 06/01/18 00:13 Patient Status [ADT] Routine Activity as Tolerated [RC] PFP Communication Order [RC] ASDIRECTED Heart Tones [RC] ASDIRECTED Non Stress Test [RC] PER UNIT ROUTINE Notify Provider [RC] PFP Notify Provider [RC] PRN Peripheral IV Care [RC] . DIRECTED Vital Signs [RC] PER UNIT ROUTINE Electronic Heart Tones Ext w TOCO [WOMSER] Routine Electronic Heart Tones Internal [WOMSER] Per Unit Routine Peripheral IV Insertion Adult [OM.PC] Routine 06/01/18 00:15 Lactated Ringers [Ringers, Lactated] 1,000 ml IV ASDIRECTED Oxytocin/Lactated Ringers [Pitocin in LR 10 Units/1,000 ML] 10 unit in 1,000 ml IV .CONTINUOUS 06/01/18 03:30 Oxytocin/Lactated Ringers [Pitocin in LR 10 Units/1,000 ML] 10 unit in 1,000 ml IV TITRATE 06/01/18 10:06 Patient Status Manage Transfer [TRANSFER] Routine 06/01/18 Dinner Regular Diet [DIET] - Assessment Assessment:: 38 y/o G4 now P1122 PD#0 from at 35 4/7 wks - Plan Plan:: * Routine cares * Encourage breast feeding * Fasting blood sugar in AM * Discharge home in 2 days
[2018-06-01] MEDS ORDERED: Witch Hazel Medicated Pads 100/Jar TOP PRN (11:17)
[2018-06-01] MEDS ORDERED: Docusate Sodium 100 MG Cap PO PRN (11:17)
[2018-06-01] MEDS ORDERED: Benzocaine/Menthol 20%-0.5% Spray 56 GM Canister TOP PRN (11:17)
[2018-06-01] MEDS ORDERED: Acetaminophen 325 MG Tab PO PRN (11:17)
[2018-06-01] MEDS ORDERED: Lanolin 100% Cream 7 GM Tube TOP PRN (11:17)
[2018-06-01] MEDS: Ibuprofen 600 MG Tab PO PRN (18:10)
--- NOTE | 2018-06-02 00:03 | PCM.PNPP ---
- General Info Date of Service: 06/02/18 Functional Status: Reports: Pain Controlled, Tolerating Diet, Ambulating, Urinating - Review of Systems General: Reports: No Symptoms Pulmonary: Reports: No Symptoms Cardiovascular: Reports: No Symptoms Gastrointestinal: Reports: No Symptoms Genitourinary: Reports: No Symptoms Musculoskeletal: Reports: No Symptoms - Patient Data Vital Signs - Most Recent: Last Vital Signs Temp 36.7 C 06/01/18 08:05 Pulse 80 06/01/18 11:30 Resp 14 06/01/18 08:05 BP 111/70 06/01/18 11:30 Pulse Ox 99 06/01/18 08:05 Weight - Most Recent: 114.759 kg I&O - Last 24 Hours: Intake & Output 06/01/18 06/01/18 06/02/18 14:59 22:59 06:59 Intake Total 0 Balance 0 Lab Results - Last 24 Hours: Laboratory Results - last 24 hr 06/01/18 06/01/18 06/01/18 Range/Units 00:25 00:25 00:25 WBC 9.47 (3.98-10.04) K/mm3 RBC 4.35 (3.98-5.22) M/mm3 Hgb 13.0 (11.2-15.7) gm/L Hct 38.9 (34.1-44.9) % MCV 89.4 (79.4-94.8) fl MCH 29.9 (25.6-32.2) pg MCHC 33.4 (32.2-35.5) g/dl RDW Std Deviation 46.0 (36.4-46.3) fL Plt Count 234 (182-369) K/mm3 MPV 11.3 (9.4-12.3) fl Creatinine 0.9 (0.55-1.02) mg/dL Est Cr Clr Drug Dosing TNP Estimated GFR (MDRD) > 60 (>60) mL/min POC Glucose (70-105) mg/dL AST 18 (15-37) U/L ALT 24 (14-59) U/L RPR (NONREACTIVE) Blood Type A POSITIVE Gel Antibody Screen Negative 06/01/18 06/01/18 06/01/18 Range/Units 00:25 00:37 02:04 WBC (3.98-10.04) K/mm3 RBC (3.98-5.22) M/mm3 Hgb (11.2-15.7) gm/L Hct (34.1-44.9) % MCV (79.4-94.8) fl MCH (25.6-32.2) pg MCHC (32.2-35.5) g/dl RDW Std Deviation (36.4-46.3) fL Plt Count (182-369) K/mm3 MPV (9.4-12.3) fl Creatinine (0.55-1.02) mg/dL Est Cr Clr Drug Dosing Estimated GFR (MDRD) (>60) mL/min POC Glucose 79 84 (70-105) mg/dL AST (15-37) U/L ALT (14-59) U/L RPR Non-reactive (NONREACTIVE) Blood Type Gel Antibody Screen 06/01/18 06/01/18 06/01/18 Range/Units 04:04 06:02 08:32 WBC (3.98-10.04) K/mm3 RBC (3.98-5.22) M/mm3 Hgb (11.2-15.7) gm/L Hct (34.1-44.9) % MCV (79.4-94.8) fl MCH (25.6-32.2) pg MCHC (32.2-35.5) g/dl RDW Std Deviation (36.4-46.3) fL Plt Count (182-369) K/mm3 MPV (9.4-12.3) fl Creatinine (0.55-1.02) mg/dL Est Cr Clr Drug Dosing Estimated GFR (MDRD) (>60) mL/min POC Glucose 76 90 102 (70-105) mg/dL AST (15-37) U/L ALT (14-59) U/L RPR (NONREACTIVE) Blood Type Gel Antibody Screen Med Orders - Current: Current Medications Acetaminophen (Tylenol) 650 mg PO Q4H PRN PRN Reason: mild pain or fever Benzocaine/Menthol (Dermoplast Pain Relief [place]) 0 gm TOP ASDIRECTED PRN PRN Reason: Perineal Comfort Measure Last Admin: 06/01/18 11:52 Dose: 1 applic Docusate Sodium (Colace) 100 mg PO BID PRN PRN Reason: Constipation Emollient Ointment (Lansinoh Hpa) 0 gm TOP ASDIRECTED PRN PRN Reason: Sore Nipples Ibuprofen (Motrin) 600 mg PO Q6H PRN PRN Reason: Mild pain or fever Last Admin: 06/01/18 18:10 Dose: 600 mg Witch Vicky (Tucks) 1 pad TOP ASDIRECTED PRN PRN Reason: Hemorrhoid pain Last Admin: 06/01/18 11:52 Dose: 1 pad Discontinued Medications Ephedrine Sulfate (Ephedrine Sulfate) 5 mg IVPUSH ASDIRECTED PRN PRN Reason: Hypotension Fentanyl (Sublimaze) 100 mcg EPIDUR Q3H PRN PRN Reason: Pain Last Admin: 06/01/18 07:59 Dose: 100 mcg Fentanyl/Bupivacaine HCl (Fentanyl/Bupivacaine/Ns 2 Mcg-0.125% 100 Ml) 100 ml EPIDUR ASDIRECTED LARA Last Admin: 06/01/18 07:59 Dose: 100 ml Lactated Ringer's (Ringers, Lactated) 1,000 mls @ 100 mls/hr IV ASDIRECTED LARA Last Admin: 06/01/18 08:37 Dose: 100 mls/hr Oxytocin/Lactated Ringer's (Pitocin In Lr 10 Units/1,000 Ml) 10 unit in 1,000 mls @ 500 mls/hr IV .CONTINUOUS LARA Oxytocin/Lactated Ringer's (Pitocin In Lr 10 Units/1,000 Ml) 10 unit in 1,000 mls @ 12 mls/hr IV TITRATE LARA; Protocol Last Titration: 06/01/18 07:05 Dose: 6 munits/min, 36 mls/hr Phenylephrine HCl 1 mg/ Sodium (Chloride) 10.1 mls @ 1 mls/sec IV TITRATE LARA; Protocol Nalbuphine HCl (Nubain) 10 mg IVPUSH Q2H PRN PRN Reason: pain Ondansetron HCl (Zofran) 4 mg IVPUSH Q4H PRN PRN Reason: Nausea/Vomiting Ondansetron HCl (Zofran) 4 mg IVPUSH ONETIME PRN PRN Reason: Nausea/Vomiting Sodium Chloride (Saline Flush) 10 ml FLUSH ASDIRECTED PRN PRN Reason: Keep Vein Open - Infant Interaction Infant Disposition, : [place] in Room with Family Infant Interaction: Holding Feeding: Breastfed Infant; Nursed Well Support Person: - Recovery Exam Fundal Tone: Firm Fundal Level: 1 Fingerbreadths Below Umbilicus Fundal Placement: Midline Lochia Amount: Small Lochia Color: Rubra/Red Bladder Status: Voiding Urinary Elimination: Voided - Exam General: Alert, Oriented, Cooperative GI/Abdominal Exam: Soft, Non-Tender Extremities: Normal Inspection Skin: Warm, Dry, Intact - Problem List & Annotations (1) 35 weeks gestation of SNOMED Code(s): 62822548 Code(s): Z3A.35 - 35 WEEKS GESTATION OF Status: Acute Current Visit: Yes (2) Cervical cerclage suture present SNOMED Code(s): 69373863 Code(s): O34.30 - MATERNAL CARE FOR CERVICAL INCOMPETENCE, UNSP TRIMESTER Status: Acute Current Visit: Yes Qualifiers: Trimester: third trimester Qualified Code(s): O34.33 - Maternal care for cervical incompetence, third trimester (3) premature rupture of membranes (PPROM) with unknown onset of labor SNOMED Code(s): 97591935988676101 Code(s): O42.919 - PRETRM ABHINAV ROM, UNSP TIME BETW RUPT AND ONST LABR, UNSP TRI Status: Acute Current Visit: Yes (4) Gestational diabetes mellitus (GDM) controlled on oral hypoglycemic drug SNOMED Code(s): 83014131 Code(s): O24.415 - GESTATNL DIABETES IN PREG, CTRL BY ORAL HYPOGLYCEMIC DRUGS Status: Acute Current Visit: Yes Qualifiers: Trimester: third trimester Qualified Code(s): O24.415 - Gestational diabetes mellitus in , controlled by oral hypoglycemic drugs (5) Vaginal delivery SNOMED Code(s): 285448552 Code(s): O80 - ENCOUNTER FOR FULL-TERM UNCOMPLICATED DELIVERY Status: Acute Current Visit: Yes - Problem List Review Problem List Initiated/Reviewed/Updated: Yes - My Orders Last 24 Hours: My Active Orders 06/01/18 00:12 Resuscitation Status Routine 06/01/18 00:13 Heart Tones [RC] ASDIRECTED Peripheral IV Care [RC] . DIRECTED 06/01/18 11:17 Activity as Tolerated [RC] PER UNIT ROUTINE Vital Signs [RC] 03,09,15,21 Acetaminophen [Tylenol] 650 mg PO Q4H PRN Benzocaine/Menthol [Dermoplast Pain Relief [place]] See Dose Instructions TOP ASDIRECTED PRN Docusate Sodium [Colace] 100 mg PO BID PRN Ibuprofen [Motrin] 600 mg PO Q6H PRN Lanolin [Lansinoh HPA] See Dose Instructions TOP ASDIRECTED PRN Witch Vicky [Tucks] 1 pad TOP ASDIRECTED PRN Assess Lochia [WOMSER] Per Unit Routine Assess Uterine Involution [WOMSER] Per Unit Routine Breast Pump [WOMSER] Per Unit Routine Heat Therapy [OM.PC] PRN Ice Therapy [OM.PC] Per Unit Routine Perineal Care [OM.PC] Per Unit Routine Peripheral IV Discontinue [OM.PC] Routine Sitz Bath [OM.PC] Per Unit Routine 06/01/18 Lunch Regular Diet [DIET] 06/02/18 05:00 Blood Glucose Check, Bedside [RC] AMPROC 06/02/18 11:17 Heat Therapy [OM.PC] PRN - Assessment Assessment:: 38 y/o G4 now P1122 PPD#1 from at 35 4/7 wks - Plan Plan:: * Routine cares * Encourage breast feeding * Fasting blood sugar this am was 79, no need for further monitoring. Can follow up at 6 week PP check with 2hr GTT * Discharge home tomorrow
[2018-06-02] MEDS: Ibuprofen 600 MG Tab PO PRN (03:27)
[2018-06-03 03:50] VITALS: BP 125/78
--- NOTE | 2018-06-03 06:54 | PCM.PNPP ---
- General Info Date of Service: 06/03/18 Functional Status: Reports: Pain Controlled, Tolerating Diet, Ambulating, Urinating - Review of Systems General: Reports: No Symptoms Pulmonary: Reports: No Symptoms Cardiovascular: Reports: No Symptoms Gastrointestinal: Reports: No Symptoms Genitourinary: Reports: No Symptoms Musculoskeletal: Reports: No Symptoms Neurological: Reports: No Symptoms - Patient Data Vital Signs - Most Recent: Last Vital Signs Temp 37.2 C 06/03/18 03:46 Pulse 82 06/03/18 03:46 Resp 18 06/03/18 03:46 BP 125/78 06/03/18 03:46 Pulse Ox 96 06/03/18 03:46 Weight - Most Recent: 114.759 kg I&O - Last 24 Hours: Intake & Output 06/02/18 06/02/18 06/03/18 14:59 22:59 06:59 Intake Total 120 60 Balance 120 60 Med Orders - Current: Current Medications Acetaminophen (Tylenol) 650 mg PO Q4H PRN PRN Reason: mild pain or fever Benzocaine/Menthol (Dermoplast Pain Relief [place]) 0 gm TOP ASDIRECTED PRN PRN Reason: Perineal Comfort Measure Last Admin: 06/01/18 11:52 Dose: 1 applic Docusate Sodium (Colace) 100 mg PO BID PRN PRN Reason: Constipation Emollient Ointment (Lansinoh Hpa) 0 gm TOP ASDIRECTED PRN PRN Reason: Sore Nipples Ibuprofen (Motrin) 600 mg PO Q6H PRN PRN Reason: Mild pain or fever Last Admin: 06/02/18 03:27 Dose: 600 mg Witch Vicky (Tucks) 1 pad TOP ASDIRECTED PRN PRN Reason: Hemorrhoid pain Last Admin: 06/01/18 11:52 Dose: 1 pad Discontinued Medications Ephedrine Sulfate (Ephedrine Sulfate) 5 mg IVPUSH ASDIRECTED PRN PRN Reason: Hypotension Fentanyl (Sublimaze) 100 mcg EPIDUR Q3H PRN PRN Reason: Pain Last Admin: 06/01/18 07:59 Dose: 100 mcg Fentanyl/Bupivacaine HCl (Fentanyl/Bupivacaine/Ns 2 Mcg-0.125% 100 Ml) 100 ml EPIDUR ASDIRECTED LARA Last Admin: 06/01/18 07:59 Dose: 100 ml Lactated Ringer's (Ringers, Lactated) 1,000 mls @ 100 mls/hr IV ASDIRECTED LARA Last Admin: 06/01/18 08:37 Dose: 100 mls/hr Oxytocin/Lactated Ringer's (Pitocin In Lr 10 Units/1,000 Ml) 10 unit in 1,000 mls @ 500 mls/hr IV .CONTINUOUS LARA Oxytocin/Lactated Ringer's (Pitocin In Lr 10 Units/1,000 Ml) 10 unit in 1,000 mls @ 12 mls/hr IV TITRATE LARA; Protocol Last Titration: 06/01/18 07:05 Dose: 6 munits/min, 36 mls/hr Phenylephrine HCl 1 mg/ Sodium (Chloride) 10.1 mls @ 1 mls/sec IV TITRATE LARA; Protocol Nalbuphine HCl (Nubain) 10 mg IVPUSH Q2H PRN PRN Reason: pain Ondansetron HCl (Zofran) 4 mg IVPUSH Q4H PRN PRN Reason: Nausea/Vomiting Ondansetron HCl (Zofran) 4 mg IVPUSH ONETIME PRN PRN Reason: Nausea/Vomiting Sodium Chloride (Saline Flush) 10 ml FLUSH ASDIRECTED PRN PRN Reason: Keep Vein Open - Interaction Disposition, : [place] in Room with Family Interaction: Holding Feeding: Breastfed ; Nursed Well Support Person: - Recovery Exam Fundal Tone: Firm Fundal Level: 1 Fingerbreadths Below Umbilicus Fundal Placement: Midline Lochia Amount: Small Lochia Color: Rubra/Red Perineum Description: Other (see below) Other Perinuem Description: 1st degree with repair Episiotomy/Laceration: Approximated Bladder Status: Voiding Urinary Elimination: Voided - Exam General: Alert, Oriented, Cooperative GI/Abdominal Exam: Soft, Non-Tender Extremities: Normal Inspection Skin: Warm, Dry, Intact - Problem List & Annotations (1) 35 weeks gestation of SNOMED Code(s): 25560306 Code(s): Z3A.35 - 35 WEEKS GESTATION OF Status: Acute Current Visit: Yes (2) Cervical cerclage suture present SNOMED Code(s): 97560225 Code(s): O34.30 - MATERNAL CARE FOR CERVICAL INCOMPETENCE, UNSP TRIMESTER Status: Acute Current Visit: Yes Qualifiers: Trimester: third trimester Qualified Code(s): O34.33 - Maternal care for cervical incompetence, third trimester (3) premature rupture of membranes (PPROM) with unknown onset of labor SNOMED Code(s): 84320733072018376 Code(s): O42.919 - PRETRM ABHINAV ROM, UNSP TIME BETW RUPT AND ONST LABR, UNSP TRI Status: Acute Current Visit: Yes (4) Gestational diabetes mellitus (GDM) controlled on oral hypoglycemic drug SNOMED Code(s): 63494308 Code(s): O24.415 - GESTATNL DIABETES IN PREG, CTRL BY ORAL HYPOGLYCEMIC DRUGS Status: Acute Current Visit: Yes Qualifiers: Trimester: third trimester Qualified Code(s): O24.415 - Gestational diabetes mellitus in , controlled by oral hypoglycemic drugs (5) Vaginal delivery SNOMED Code(s): 693754822 Code(s): O80 - ENCOUNTER FOR FULL-TERM UNCOMPLICATED DELIVERY Status: Acute Current Visit: Yes - Problem List Review Problem List Initiated/Reviewed/Updated: Yes - My Orders Last 24 Hours: My Active Orders 06/02/18 11:17 Heat Therapy [OM.PC] PRN 06/03/18 06:54 Ready for Discharge [RC] PER UNIT ROUTINE - Assessment Assessment:: 38 y/o G4 now P1122 PPD#2 from at 35 4/7 wks - Plan Plan:: * Routine cares * Encourage breast feeding * Follow up at 6 week PP check with 2hr GTT * Discharge home today
--- NOTE | 2018-06-03 06:55 | PCM.DCSUM1 ---
Discharge Summary - Discharge Data Discharge Date: 06/03/18 Discharge Disposition: Home, Self-Care 01 Condition: Good - Discharge Diagnosis/Problem(s) (1) 35 weeks gestation of SNOMED Code(s): 95560084 ICD Code: Z3A.35 - 35 WEEKS GESTATION OF Status: Acute Current Visit: Yes (2) Cervical cerclage suture present SNOMED Code(s): 81505116 ICD Code: O34.30 - MATERNAL CARE FOR CERVICAL INCOMPETENCE, UNSP TRIMESTER Status: Acute Current Visit: Yes Qualifiers: Trimester: third trimester Qualified Code(s): O34.33 - Maternal care for cervical incompetence, third trimester (3) premature rupture of membranes (PPROM) with unknown onset of labor SNOMED Code(s): 99440848809670705 ICD Code: O42.919 - PRETRM ABHINAV ROM, UNSP TIME BETW RUPT AND ONST LABR, UNSP TRI Status: Acute Current Visit: Yes (4) Gestational diabetes mellitus (GDM) controlled on oral hypoglycemic drug SNOMED Code(s): 61912214 ICD Code: O24.415 - GESTATNL DIABETES IN PREG, CTRL BY ORAL HYPOGLYCEMIC DRUGS Status: Acute Current Visit: Yes Qualifiers: Trimester: third trimester Qualified Code(s): O24.415 - Gestational diabetes mellitus in , controlled by oral hypoglycemic drugs (5) Vaginal delivery SNOMED Code(s): 292483442 ICD Code: O80 - ENCOUNTER FOR FULL-TERM UNCOMPLICATED DELIVERY Status: Acute Current Visit: Yes - Patient Summary/Data Complications: None Recommended Follow-up Testing/Procedures: Follow up in 2-6 weeks for check Hospital Course: 38 y/o at 35 4/7 wks presented with PPROM. Cerclage in place from early which was removed without difficulty. She was started on pitocin for augmentation. She progressed well to complete dilation and underwent an uncomplicated - Patient Instructions Diet: Regular Diet as Tolerated Activity: As Tolerated Activity, Other: Pelvic Rest for 6 weeks Driving: May Drive Today Showering/Bathing: May Shower Showering/Bathing, Other: May Bathe Notify Provider of: Fever, Increased Pain, Swelling and Redness, Drainage, Nausea and/or Vomiting - Discharge Plan *PRESCRIPTION DRUG MONITORING PROGRAM REVIEWED*: Not Applicable *COPY OF PRESCRIPTION DRUG MONITORING REPORT IN PATIENT [place]: Not Applicable Prescriptions/Med Rec: Ibuprofen [Motrin] 600 mg PO Q6H PRN #30 tablet PRN Reason: Mild pain or fever Home Medications: Home Meds Docusate Sodium [Colace] 1 cap PO DAILY 12/28/17 [History] Levothyroxine [Synthroid] 112 mcg PO DAILY 12/28/17 [History] Pnv No.95/Ferrous Fum/Folic AC [ Multivitamin Tablet] 1 tab PO DAILY [History] Ibuprofen [Motrin] 600 mg PO Q6H PRN #30 tablet 06/02/18 [Rx] Referrals: Rey Roman MD [Primary Care Provider] - (2 weeks for post check ) - Discharge Summary/Plan Comment DC Time >30 min.: No - Patient Data Vitals - Most Recent: Last Vital Signs Temp 37.2 C 06/03/18 03:46 Pulse 82 06/03/18 03:46 Resp 18 06/03/18 03:46 BP 125/78 06/03/18 03:46 Pulse Ox 96 06/03/18 03:46 Weight - Most Recent: 114.759 kg I&O - Last 24 hours: Intake & Output 06/02/18 06/02/18 06/03/18 14:59 22:59 06:59 Intake Total 120 60 Balance 120 60 Med Orders - Current: Current Medications Acetaminophen (Tylenol) 650 mg PO Q4H PRN PRN Reason: mild pain or fever Benzocaine/Menthol (Dermoplast Pain Relief [place]) 0 gm TOP ASDIRECTED PRN PRN Reason: Perineal Comfort Measure Last Admin: 06/01/18 11:52 Dose: 1 applic Docusate Sodium (Colace) 100 mg PO BID PRN PRN Reason: Constipation Emollient Ointment (Lansinoh Hpa) 0 gm TOP ASDIRECTED PRN PRN Reason: Sore Nipples Ibuprofen (Motrin) 600 mg PO Q6H PRN PRN Reason: Mild pain or fever Last Admin: 06/02/18 03:27 Dose: 600 mg Witch Vicky (Tucks) 1 pad TOP ASDIRECTED PRN PRN Reason: Hemorrhoid pain Last Admin: 06/01/18 11:52 Dose: 1 pad Discontinued Medications Ephedrine Sulfate (Ephedrine Sulfate) 5 mg IVPUSH ASDIRECTED PRN PRN Reason: Hypotension Fentanyl (Sublimaze) 100 mcg EPIDUR Q3H PRN PRN Reason: Pain Last Admin: 06/01/18 07:59 Dose: 100 mcg Fentanyl/Bupivacaine HCl (Fentanyl/Bupivacaine/Ns 2 Mcg-0.125% 100 Ml) 100 ml EPIDUR ASDIRECTED LARA Last Admin: 06/01/18 07:59 Dose: 100 ml Lactated Ringer's (Ringers, Lactated) 1,000 mls @ 100 mls/hr IV ASDIRECTED LARA Last Admin: 06/01/18 08:37 Dose: 100 mls/hr Oxytocin/Lactated Ringer's (Pitocin In Lr 10 Units/1,000 Ml) 10 unit in 1,000 mls @ 500 mls/hr IV .CONTINUOUS LARA Oxytocin/Lactated Ringer's (Pitocin In Lr 10 Units/1,000 Ml) 10 unit in 1,000 mls @ 12 mls/hr IV TITRATE LARA; Protocol Last Titration: 06/01/18 07:05 Dose: 6 munits/min, 36 mls/hr Phenylephrine HCl 1 mg/ Sodium (Chloride) 10.1 mls @ 1 mls/sec IV TITRATE LARA; Protocol Nalbuphine HCl (Nubain) 10 mg IVPUSH Q2H PRN PRN Reason: pain Ondansetron HCl (Zofran) 4 mg IVPUSH Q4H PRN PRN Reason: Nausea/Vomiting Ondansetron HCl (Zofran) 4 mg IVPUSH ONETIME PRN PRN Reason: Nausea/Vomiting Sodium Chloride (Saline Flush) 10 ml FLUSH ASDIRECTED PRN PRN Reason: Keep Vein Open
== END 2018-06-03 12:50 | disposition home or self-care (01) | DRG 560 ==
LOC: JD.OBCHECK 23:35 → JD.OB 23:36 → JD.OBCHECK 06-01 00:12 → JD.OB 06-01 00:13 → OBSVTOIN 06-01 09:45 → JD.OB 06-01 09:46
PROVIDERS: ADMIT Obstetrics & Gynecology; ATTEND Obstetrics & Gynecology
PROC: 10E0XZZ Delivery of Products of Conception, External Approach (ICD-10-PCS; principal; 2018-06-01)
PROC: 0UCC7ZZ Extirpation of Matter from Cervix, Via Natural or Artificial Opening (ICD-10-PCS; 2018-06-01)
PROC: 0HQ9XZZ Repair Perineum Skin, External Approach (ICD-10-PCS; 2018-06-01)
PROC: 6A550ZT Pheresis of Cord Blood Stem Cells, Single (ICD-10-PCS; 2018-06-01)
PROC: 00HU33Z Insertion of Infusion Device into Spinal Canal, Percutaneous Approach (ICD-10-PCS; 2018-06-01)
PROC: 3E0R3BZ Introduction of Anesthetic Agent into Spinal Canal, Percutaneous Approach (ICD-10-PCS; 2018-06-01)
DX: O42.013 Preterm premature rupture of membranes, onset of labor within 24 hours of rupture, third trimester (principal); O34.33 Maternal care for cervical incompetence, third trimester; O24.425 Gestational diabetes mellitus in childbirth, controlled by oral hypoglycemic drugs; E66.9 Obesity, unspecified; Z68.39 Body mass index [BMI] 39.0-39.9, adult; O99.214 Obesity complicating childbirth; O70.0 First degree perineal laceration during delivery; Z3A.35 35 weeks gestation of pregnancy; Z37.0 Single live birth; O99.284 Endocrine, nutritional and metabolic diseases complicating childbirth; E03.9 Hypothyroidism, unspecified; Z90.49 Acquired absence of other specified parts of digestive tract; Z79.899 Other long term (current) drug therapy; Z88.5 Allergy status to narcotic agent; Z77.22 Contact with and (suspected) exposure to environmental tobacco smoke (acute) (chronic)
CPT/HCPCS: 01967; 36415; 51702; 59025; 59300; 59409; 82565; 82962; 84450; 84460; 85027; 86592; 86850; 86900; 86901; A9270-GY; J2590; J3010; J3490; J7120

== ENCOUNTER 2022-01-09 16:09 | Emergency (ER) | payer BC ==
[2022-01-09] MEDS ORDERED: Sodium Chloride 0.9% 10 ML Syringe FLUSH PRN (17:03)
[2022-01-09] MEDS ORDERED: Metoprolol Tartrate 50 MG Tab PO ONE (17:04)
[2022-01-09 18:45] VITALS: BP 140/85; PULSE 75
== END 2022-01-09 19:01 | disposition home or self-care (01) ==
LOC: JD.ED 16:09
DX: R00.2 Palpitations (principal); I10 Essential (primary) hypertension; E03.9 Hypothyroidism, unspecified; E11.9 Type 2 diabetes mellitus without complications; Z90.49 Acquired absence of other specified parts of digestive tract; Z88.5 Allergy status to narcotic agent; Z79.899 Other long term (current) drug therapy
CPT/HCPCS: 36415; 70450; 80053; 83735; 84443; 84484; 85025; 93005; 99285; A9270; 93010; 99284

== ENCOUNTER 2022-12-19 07:04 | Day surgery (SDC) | payer BC ==
[~2022-12-19 07:04] MED LIST changes: -Bupivacaine 0.25% 10 ML SDV ONE; +Lactated Ringers 1,000 ML IV SCH; +Lidocaine 1% 8 ML ONE; +Lidocaine 1%/Sod Bicarbonate in NS 8.4% 1 ML Syringe IDERM PRN; +Midazolam 1 MG/ML 2 ML SDV ONE; +Propofol 200 MG/20 ML SDV ONE; +Rocuronium 50 MG/5 ML Vial ONE; +Sodium Chloride 0.9% 10 ML Syringe FLUSH PRN; +Sodium Chloride 0.9% 10 ML Syringe FLUSH SCH; +Succinylcholine 200 MG/10 ML MDV ONE; +ceFAZolin 2 GM Vial ONE; +fentaNYL 250 MCG/5 ML SDV ONE
[2022-12-19] MEDS ORDERED: Ketamine 500 mg/10 ML MDV ONE (07:06)
[2022-12-19] MEDS ORDERED: Bupivacaine 0.5% 30 ML SDV ONE (07:21)
[2022-12-19] MEDS ORDERED: Bupivacaine 0.25%/EPINEPHrine 1:200,000 30 ML SDV ONE ×2 (07:22→07:42)
[2022-12-19] MEDS ORDERED: Ondansetron 4 MG/2 ML SDV ONE (08:30)
[2022-12-19] MEDS ORDERED: Metoclopramide 10 MG/2 ML SDV ONE (08:30)
[2022-12-19] MEDS ORDERED: Lactated Ringers 1,000 ML ONE (08:32)
[2022-12-19] MEDS ORDERED: Neostigmine Methylsulfate 10 MG/10 ML MDV ONE (08:40)
[2022-12-19] MEDS ORDERED: Ketorolac 30 MG/ML SDV ONE (08:52)
[2022-12-19] MEDS ORDERED: Acetaminophen/oxyCODONE 325-5 MG Tab PO PRN (09:12)
[2022-12-19] MEDS ORDERED: Ondansetron 4 MG/2 ML SDV IVPUSH PRN (09:12)
[2022-12-19] MEDS ORDERED: fentaNYL 100 MCG/2 ML SDV IVPUSH PRN (09:38)
[2022-12-19] MEDS ORDERED: HYDROmorphone 0.5 MG/0.5 ML Syringe IVPUSH PRN (09:38)
[2022-12-19] MEDS ORDERED: Prochlorperazine 10 MG/2 ML SDV IVPUSH PRN (10:19)
[2022-12-19 13:57] VITALS: BP 134/78; PULSE 68
[2022-12-19] MEDS ORDERED: Ketorolac 30 MG/ML SDV IVPUSH SCH (15:00)
[2022-12-19] MEDS ORDERED: Ibuprofen 600 MG Tab PO PRN (23:00)
== END 2022-12-19 13:55 | disposition home or self-care (01) ==
LOC: JD.SDS 07:04
PROVIDERS: ATTEND Obstetrics & Gynecology
DX: N80.03 Adenomyosis of the uterus (principal); N71.1 Chronic inflammatory disease of uterus; N81.2 Incomplete uterovaginal prolapse; N70.11 Chronic salpingitis; N92.1 Excessive and frequent menstruation with irregular cycle; F32.A Depression, unspecified; I10 Essential (primary) hypertension; E03.9 Hypothyroidism, unspecified; E66.9 Obesity, unspecified; E11.9 Type 2 diabetes mellitus without complications; G47.30 Sleep apnea, unspecified; D64.9 Anemia, unspecified; K21.9 Gastro-esophageal reflux disease without esophagitis; G47.10 Hypersomnia, unspecified; Z68.42 Body mass index [BMI] 45.0-49.9, adult; Z86.32 Personal history of gestational diabetes; Z88.5 Allergy status to narcotic agent; Z86.16 Personal history of COVID-19; Z79.84 Long term (current) use of oral hypoglycemic drugs; Z79.899 Other long term (current) drug therapy; Z87.891 Personal history of nicotine dependence; Z87.410 Personal history of cervical dysplasia
CPT/HCPCS: 00944; 36415; 81003; 81025; 82947; 86850; 86900; 86901; A9270-GY; J0330; J0690; J0780; J1885; J2250; J2405; J2704; J2710; J2765; J3010; J3490; J7120

== ENCOUNTER 2024-03-21 19:33 | Emergency (ER) | payer BC ==
[2024-03-21 20:56] VITALS: PULSE 104
[2024-03-21] MEDS: Ketorolac 60 MG/2 ML SDV IM ONE (22:12)
== END 2024-03-22 02:05 | disposition home or self-care (01) ==
LOC: JD.ED 19:33
DX: S93.402A Sprain of unspecified ligament of left ankle, initial encounter (principal); S93.401A Sprain of unspecified ligament of right ankle, initial encounter; Z88.5 Allergy status to narcotic agent; Z79.899 Other long term (current) drug therapy; Z79.84 Long term (current) use of oral hypoglycemic drugs; Z79.85 Long-term (current) use of injectable non-insulin antidiabetic drugs; Z86.16 Personal history of COVID-19; Z90.49 Acquired absence of other specified parts of digestive tract; X50.1XXA Overexertion from prolonged static or awkward postures, initial encounter; Y93.89 Activity, other specified
CPT/HCPCS: 73610; 73700; 96372; 99284; J1885; 99282